=== PATIENT | female | born 1945 | race Caucasian/White ===

== ENCOUNTER 2016-11-04 06:28 | Emergency (ER) | payer OTHER ==
[~2016-11-04] VITALS: Ht 162.6 cm; Wt 71.4 kg
[~2016-11-04 06:28] MED LIST: AMLACTIN140 GM TP; CALCARB 600 W-1 EACH PO; CALCIUM W/VIT1 EACH PO; CARDIZEM120 MG PO; DILTIAZEM 24HR120 MG PO; HYZAAR 100-11 TABLET PO; HYZAAR 100-21 TABLET PO; K-DUR20 MEQ PO; KEPPRA500 MG PO; KLONOPIN0.5 M1 PO; LO-DOSE ASPIRIN81 M1 PO; MOTRIN IB200 MG PO; PRILOSEC40 MG PO; SINGULAIR10 MG PO; SYNTHROID50 MCG PO; VAGIFEM10 MCG VG; VITAMIN E400 UNIT PO
[2016-11-04 11:40] LABS: ADD MIUA? NO; BILIRUBIN NEGATIVE; BLOOD NEGATIVE; COLOR STRAW ((YELLOW)); GLUCOSE (STRIP) NEGATIVE; KETONES NEGATIVE; LEUKOCYTES NEGATIVE; NITRITE NEGATIVE; PROTEIN (STRIP) NEGATIVE; SPECIFIC GRAVITY 1.012 (1.000-1.030); UCUL ADDED? NO; UROBILINOGEN 0.2 MG/DL (0.2-1.0)
[2016-11-04 12:47] VITALS: BP 139/82
== END 2016-11-04 12:53 | disposition home or self-care (01) ==
LOC: EME 06:28 → NUC 06:28 → EDSTATUS 07:00 → NUC 07:00 → EME 12:53
PROVIDERS: Emergency Medicine
DX: S40.021A Contusion of right upper arm, initial encounter (principal); M25.511 Pain in right shoulder; W01.0XXA Fall on same level from slipping, tripping and stumbling without subsequent striking against object, initial encounter; Y92.238 Other place in hospital as the place of occurrence of the external cause; I10 Essential (primary) hypertension; E03.9 Hypothyroidism, unspecified; Z95.5 Presence of coronary angioplasty implant and graft; Z79.82 Long term (current) use of aspirin
CPT/HCPCS: 73020; 73030; 73060; 78227; 81003; 93005; 99281; 99285; A9537; J2805